=== PATIENT | female | born 1970 | race African-American/Black ===

== ENCOUNTER 2019-10-06 18:17 | Emergency (ER) | payer OTHER ==
[~2019-10-06] VITALS: Ht 165.1 cm; Wt 77.1 kg
[~2019-10-06 18:17] MED LIST: NORCO 5-325 TA1 EACH PO; TRINATE TABLET1 TAB PO; [UNRECOGNIZED DRUG - OTHER] PO
[2019-10-06 19:18] LABS: ABSOLUTE NEUTROPHILS 3.4 thou/uL (1.4-8.2); BASOPHILS 0.5 % (0.0-2.0); HEMATOCRIT 38.9 % (37.0-47.0); HEMOGLOBIN 12.9 gm/dL (12.0-15.0); MCH 27.1 pg (26.0-34.0); MCHC 33.3 g/dL (28.0-37.0); MCV 81.5 fL (80.0-100.0); PLATELET COUNT 238 thou/uL (150-400); POLYS 59.5 % (36.0-66.0); RBC 4.77 mil/uL (4.20-5.00); RDW 14.6 % (10.5-14.5); WBC 5.6 thou/uL (4.0-11.0)
[2019-10-06 19:21] LABS: CALCIUM 7.9 mg/dL (8.5-10.1); CREATININE 1.1 mg/dL (0.6-1.0); POTASSIUM 3.7 mmol/L (3.5-5.1)
[2019-10-06 19:27] LABS: ALBUMIN 2.9 g/dL (3.4-5.0); TOTAL BILIRUBIN 0.3 mg/dL (0.2-1.0); TOTAL PROTEIN 8.3 g/dL (6.4-8.2)
[2019-10-06] MEDS ORDERED: MEDROLDOSEPACK PO (19:59)
[2019-10-06] MEDS ORDERED: ZPAK PO (19:59)
[2019-10-06] MEDS ORDERED: ONDANSETRON HCL4 M2 PO (19:59)
[2019-10-06] MEDS ORDERED: PROMETH-CODEIN 65 ML PO (20:05)
[2019-10-06 20:11] VITALS: BP 118/63
== END 2019-10-06 20:12 | disposition home or self-care (01) ==
LOC: ER 18:17
PROVIDERS: Physician Assistant
DX: U07.1 COVID-19 (principal); R05 Cough; M79.18 Myalgia, other site; Z88.6 Allergy status to analgesic agent; Z88.5 Allergy status to narcotic agent; Z91.013 Allergy to seafood; Z79.899 Other long term (current) drug therapy

== ENCOUNTER 2019-10-13 11:36 | Inpatient (IN) | payer OTHER ==
[~2019-10-13] VITALS: Ht 162.6 cm; Wt 74.4 kg
[~2019-10-13 11:36] MED LIST changes: +MEDROLDOSEPACK PO; +ONDANSETRON HCL4 M2 PO; +PROMETH-CODEIN 65 ML PO; +ZPAK PO
[2019-10-13 11:45] VITALS: BP 122/70
[2019-10-13 12:57] LABS: ABSOLUTE NEUTROPHILS 7.9 thou/uL (1.4-8.2); BASOPHILS 0.1 % (0.0-2.0); EOSINOPHILS 0.6 % (0.0-3.0); HEMATOCRIT 36.1 % (37.0-47.0); MCH 27.2 pg (26.0-34.0); MCHC 33.2 g/dL (28.0-37.0); MCV 82.1 fL (80.0-100.0); MONOCYTES 5.4 % (1.0-8.0); PLATELET COUNT 338 thou/uL (150-400); POLYS 75.9 % (36.0-66.0); RDW 14.6 % (10.5-14.5); WBC 10.4 thou/uL (4.0-11.0)
[2019-10-13 13:03] LABS: ANION GAP 11 mmol/L (7-16); BUN 10 mg/dL (7-18); CALCIUM 8.7 mg/dL (8.5-10.1); CHLORIDE 99 mmol/L (98-107); CO2 30 mmol/L (21-32); GLUCOSE 122 mg/dL (74-106); POTASSIUM 3.4 mmol/L (3.5-5.1); SODIUM 140 mmol/L (136-145)
[2019-10-13 13:14] LABS: ALBUMIN 2.5 g/dL (3.4-5.0); MAGNESIUM 2.3 mg/dL (1.8-2.4); SGOT 62 U/L (15-37); SGPT 23 U/L (30-65); TOTAL BILIRUBIN 0.6 mg/dL (0.2-1.0); TOTAL PROTEIN 8.2 g/dL (6.4-8.2); TROPONIN-I <0.06 ng/mL (<0.06)
[2019-10-13 14:06] LABS: BE(vivo) 2.3 mmol/L (-2 to +3); HCO3 25.2 mmol/L (22.0-26.0); PCO2 33.3 mmHg (35.0-45.0); PO2 54.3 mmHg (80.0-100.0); pH 7.497 (7.360-7.450); sO2 91.1 % (92.0-98.0)
--- NOTE | 2019-10-13 16:24 | EKG ---
[facility] [place] [address] ELECTROCARDIOGRAM REPORT Name: SULY JULIEN Room #: [facility]..#: [id number] Admission: 10/13/19 Attend Phys: Discharge: Date of : 74 Report #: [id number] THIS REPORT FOR: cc: Justus Francisco MD, Michael J. 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
[2019-10-13 17:13] VITALS: BP 113/65
[2019-10-13 17:38] VITALS: BP 115/64
[2019-10-13 18:04] LABS: URINE BILIRUBIN NEGATIVE (Negative); URINE BLOOD NEGATIVE (Negative); URINE CLARITY CLEAR; URINE COLOR YELLOW; URINE GLUCOSE-RANDOM* NEGATIVE (Negative); URINE KETONES NEGATIVE (Negative); URINE LEUKOCYTES-REFLEX NEGATIVE (Negative); URINE NITRITE-REFLEX NEGATIVE (Negative); URINE PROTEIN (DIPSTICK) 1+ (Negative)
[2019-10-13 18:18] VITALS: BP 131/68
[2019-10-13 18:27] LABS: SQUAMOUS >10 Many /LPF (0-3)
[2019-10-13 18:39] LABS: CRYSTALS None Seen /LPF (None Seen); URINE RBC 0-2 Rare /HPF (0-2)
[2019-10-13 18:40] LABS: BACTERIA-REFLEX None Seen /HPF (None Seen)
[2019-10-13 18:41] LABS: COARSE GRANULAR CASTS 0-3 Few /LPF (None Seen); HYALINE CASTS 0-3 Few /LPF (None Seen); URINE WBC-REFLEX 0-5 Rare /HPF (0-5)
--- NOTE | 2019-10-13 19:33 | NUR ---
PATIENT ADMIT TO UNIT AT 1800. A/O X4. ON 3L/NC. DENIES PAIN. UP AD PATRICIO. WILL KEEP MONITOR.
[2019-10-13 21:00] VITALS: BP 116/78
[2019-10-14 04:05] VITALS: BP 111/68
--- NOTE | 2019-10-14 04:28 | NUR ---
Patient making slow progress towards outcome goals. Oxygenation optimal with 3L/NC sats 93-95%. Coughing fits, causing stress incontinence. pads provided. IVFluids infusing. Up adlib, gait steady. Good oral intake. Temp max 99 orall. Patient states she feels improved overall.
[2019-10-14 06:50] LABS: HEMOGLOBIN 10.9 gm/dL (12.0-15.0); MCH 26.9 pg (26.0-34.0); MCHC 32.4 g/dL (28.0-37.0)
[2019-10-14 06:52] LABS: ABSOLUTE NEUTROPHILS 7.3 thou/uL (1.4-8.2); BASOPHILS 0.3 % (0.0-2.0); HEMATOCRIT 33.5 % (37.0-47.0); LYMPHOCYTES 5.8 % (24.0-44.0); MCV 82.8 fL (80.0-100.0); MONOCYTES 8.5 % (1.0-8.0); POLYS 85.4 % (36.0-66.0); RBC 4.05 mil/uL (4.20-5.00); RDW 14.9 % (10.5-14.5); WBC 8.6 thou/uL (4.0-11.0)
[2019-10-14 07:29] LABS: ALBUMIN 2.1 g/dL (3.4-5.0); CALCIUM 8.3 mg/dL (8.5-10.1); CREATININE 0.9 mg/dL (0.6-1.0); INR 1.1; PROTIME 11.1 Seconds (9.3-11.4); TOTAL BILIRUBIN 0.4 mg/dL (0.2-1.0); TOTAL PROTEIN 7.4 g/dL (6.4-8.2)
[2019-10-14 08:24] VITALS: BP 107/69
[2019-10-14 11:32] VITALS: BP 116/71
[2019-10-14 11:50] LABS: PLATELET COUNT 289 thou/uL (150-400)
[2019-10-14 16:28] VITALS: BP 127/79
--- NOTE | 2019-10-14 17:14 | NUR ---
ASSUMED PATIENT CARE AT 0700. A/O X4. ON 3L/NS. SOB WITH EXERTION. C/O ABD PAIN. NO N/V. SLOWLY TOWARDS POC GOALS.
[2019-10-14 19:39] LABS: BE(vivo) 3.4 mmol/L (-2 to +3); HCO3 27.1 mmol/L (22.0-26.0); PCO2 37.9 mmHg (35.0-45.0); PO2 55.9 mmHg (80.0-100.0); pH 7.472 (7.360-7.450)
[2019-10-14 19:40] VITALS: BP 115/74
--- NOTE | 2019-10-14 22:11 | NUR ---
PT IS ALERT AND ORIENTED X4. RR 28 AT START OF SHIFT. O2 SAT 44% FOUND PER RT ALIA WHILE WE WERE IN REPORT. PLACED ON 100% NRB . SAT INCREASED TO 92-93%. ABGS DONE.CRITICAL RESULTS CALLED TO ELAINA RAJAN AND DR THOMSON. RESP TX PER RT. METHYLPREDISONE GIVEN SCHEDULED. WAITING FOR ICU BED FOR POSSIBLE BIPAP AND NEBULIZERS PER DR FUCHS REQUEST. MONITORING O2 SAT FREQUENTLY. LUNGS SOUND CLEAR UPPERSWITH DIMINISHED BASES, STAT PCXRAY DONE. WAITING FOR RESULTS.
[2019-10-14 23:25] VITALS: BP 119/70
[2019-10-15] VITALS (18 sets, daily range): BP systolic 112–148; BP diastolic 61–82
--- NOTE | 2019-10-15 07:23 | NUR ---
PT TRANSFERRED FROM [facility], AROUND 0130 DUE TO HYPOXIA, UNABLE TO KEEP O2 SATS > 90 ON A NONEREBREATHER. ALERT AND ORIENTED. SR ON THE MONITOR. PT CURRENTLY ON BIPAP FIO2 80% , O2 SATS > 90. DENIES ANY CONCERNS, DENIES PAIN, NAUSEA OR VOMITING. CONVALESCENT PLASMA ORDERED BY DR THOMSON, UNABLE TO TRANSFUSE LAST NIGHT. DR. THOMSON OK TO WAIT FOR DR. MAGAÑA TO SEE THE PATIENT HE WILL BE THE ONE TO PROVIDE EIND NUMBER. PT CURRENTLY RESTING , NO OTHER CONCERNS. WILL CONTINUE TO MONITOR AND FOLLOW POC.
--- NOTE | 2019-10-15 14:42 | NUR ---
1100 Per pt request, RN added Linh Madden- cousena as an additional authorized contact. RN called Linh to update on pt's pulmonary status and gave her the Privacy Code. 1300 pt had chicken noodle soup, banana, peaches for lunch. Sao2 intermittently down to 83%, then slowly resolves into 90's. 1430 with one assist, pt into prone position. st-119, sa02 down to 83%, then returned to sr-80's, [id number]%. resting quietly at this time.
--- NOTE | 2019-10-15 15:32 | NUR ---
CALL PLACED TO INFECTIOUS DISEASE TO OBTAIN AN "eIND" number for convalescent plasma administration.
[2019-10-16] VITALS (24 sets, daily range): BP systolic 112–151; BP diastolic 56–80
[2019-10-16 05:31] LABS: HEMATOCRIT 33.4 % (37.0-47.0); HEMOGLOBIN 10.7 gm/dL (12.0-15.0); MCH 26.5 pg (26.0-34.0); MCHC 31.9 g/dL (28.0-37.0); MCV 83.1 fL (80.0-100.0); RBC 4.02 mil/uL (4.20-5.00); RDW 15.1 % (10.5-14.5); WBC 15.8 thou/uL (4.0-11.0)
[2019-10-16 05:39] LABS: PLATELET COUNT 191 thou/uL (150-400)
[2019-10-16 05:45] LABS: ALBUMIN 2.4 g/dL (3.4-5.0); CALCIUM 8.5 mg/dL (8.5-10.1); POTASSIUM 3.8 mmol/L (3.5-5.1); TOTAL BILIRUBIN 0.9 mg/dL (0.2-1.0); TOTAL PROTEIN 6.9 g/dL (6.4-8.2)
[2019-10-16 06:50] LABS: BE(vivo) 3.7 mmol/L (-2 to +3); HCO3 28.3 mmol/L (22.0-26.0); PCO2 42.8 mmHg (35.0-45.0); PO2 68.5 mmHg (80.0-100.0); pH 7.438 (7.360-7.450); sO2 94.2 % (92.0-98.0)
[2019-10-16 06:54] LABS: ABSOLUTE NEUTROPHILS 14.1 thou/uL (1.4-8.2); MYELOCYTES 2 %
--- NOTE | 2019-10-16 09:21 | NUR ---
on optiflow, consumed small amount breakfast. lights dimmed, she prefers to rest.
--- NOTE | 2019-10-16 11:42 | NUR ---
chart review. cm unable to visit with valarie rt resting and soa. noted from chart pt mom was covid + and she helps her mom out. then she came in was tested and sent home from ed, cont to become more soa and not feeling well and then she came back to ed and was admitted. cm tried calling spouse hari via phone call and got a busy signal, needing to verify if she indeed works with [employer] and if she carries any health insurance. will cont following as needed for dc needs.
--- NOTE | 2019-10-16 12:54 | NUR ---
SAO2 DOWN TO 63% AFTER COUGHING. PLACED ON BIPAP- CPAP MODE-8, FI02 80% WITH RESP RATE DOWN TO 28. UP TO BEDSIDE COMMODE SINCE HAVING LOOSE STOOL. COUSIN CALLED, UPDATED ON STATUS.
--- NOTE | 2019-10-16 18:00 | NUR ---
REPLACED ON OPTIFLOW WHEN UP IN CHAIR. TOLERATING SITTING IN CHAIR AND HER "LUNG" DISCOMFORT IS RESOLVED WHILE IN CHAIR. TO BS WITHOUT RESULTS. BACK TO CHAIR TO CONSUME PM MEAL.
--- NOTE | 2019-10-16 21:51 | NUR ---
PT UP IN CHAIR WATCHING TV AND ON PHONE. PT SMILING AND TALKING WITH STAFF, SOME SOA WITH TALKING. OPTIFLOW INTACT. SIMS TO DD. SLIDING SCALE GIVEN AND PT PROIVDED HS SNACK. . LUNGS DIMINISHED ON RUL RLL. PT STATED HER GOAL IS TO BE OUT OF ICU BY WED. NURSE DISCUSSED WITH PT WHEN SHE GOES TO BED TO BE IN PRONE POSITION AND BIPAP. PT STATED SHE WAS PRONE YESTERDAY AND NOTICED THE DIFFERENCE. PT STATED SHE WANTS TO STAY IN THE CHAIR TONIGHT. WILL ASK RESPIRATORY THERAPIST TO REAPPROACH PT REGARDING THIS TOPIC. LOVENOX GIVEN, SCDS ON.
[2019-10-17] VITALS (8 sets, daily range): BP systolic 116–132; BP diastolic 61–86
--- NOTE | 2019-10-17 01:32 | NUR ---
PT CALLED OUT TO GET INTO BED IN PRONE POSITION. PT WAS ABLE TO INDEP GET INTO BED AND CONTINUED TO EXPRESS HER INSTRUCTIONS, NO EXERTION NOTED IN VERBALIZATIONS.
[2019-10-17 04:51] LABS: ABSOLUTE NEUTROPHILS 10.9 thou/uL (1.4-8.2); BASOPHILS 0.4 % (0.0-2.0); HEMATOCRIT 34.9 % (37.0-47.0); HEMOGLOBIN 11.2 gm/dL (12.0-15.0); LYMPHOCYTES 16.3 % (24.0-44.0); MCH 26.3 pg (26.0-34.0); MCHC 31.9 g/dL (28.0-37.0); MCV 82.3 fL (80.0-100.0); MONOCYTES 4.7 % (1.0-8.0); PLATELET COUNT 183 thou/uL (150-400); POLYS 78.6 % (36.0-66.0); RBC 4.25 mil/uL (4.20-5.00); RDW 14.5 % (10.5-14.5); WBC 13.8 thou/uL (4.0-11.0)
--- NOTE | 2019-10-17 04:54 | NUR ---
PT VERBALIZED UNDERSTANDING OF TRANSFER TO 364. REPORT TO BE PROVIDED TO DI ON 3W. PT TRANSFERED IN BED ON NON REBREATHER, PT WILL RETURN TO BIPAP ON 3W.
[2019-10-17 05:12] LABS: ALBUMIN 2.4 g/dL (3.4-5.0); CALCIUM 8.5 mg/dL (8.5-10.1); MAGNESIUM 2.5 mg/dL (1.8-2.4); POTASSIUM 3.3 mmol/L (3.5-5.1); TOTAL BILIRUBIN 0.6 mg/dL (0.2-1.0); TOTAL PROTEIN 6.8 g/dL (6.4-8.2)
--- NOTE | 2019-10-17 08:09 | NUR ---
RECEIVED PT FROM ICU AROUND 0600 AM. VSS. AFEBRILE. SATS 91-96% ON CPAP WITH 80% FIO2. PT SITTING UP ON BSC HAVING LOOSE STOOLS. DISCONTINUED SIMS PER PT REQUEST AFTER ELAINA NOTIFIED. ST ON MONITOR.ORIENTED PT TO ROOM. CALL LIGHTIN REACH. INSTRUCTED PT ON FALL PRECAUTIONS.
--- NOTE | 2019-10-17 08:21 | NUR ---
SCDS OFF FOR NOW DUE TO NO MACHINE AVAILABLE. SLEEVES IN ROOM. NOTFIED DAY SHIFT NS TO F/U.
--- NOTE | 2019-10-17 08:37 | NUR ---
SCDS APPLIED FOUND MACHINE.
--- NOTE | 2019-10-17 15:12 | NUR ---
CHAY reviewed chart and spoke with nursing and attending physician. Pt in Enhanced Isolation due to COVID-19. Pt is afebrile. On IV abx and requring bipap support. SW left voice message for pt on her cell phone to discuss her prior level of functioning before coming to the hospital. Per chart, she lives at home with her son. Therapy will need to be ordered when pt is able to participate. CHAY is following to assist as needed with discharge planning.
--- NOTE | 2019-10-17 18:46 | NUR ---
ASSUMED PATIENT CARE AT 0700. A/O X4.SOB AND INCREASED HR WITH ACTIVTY. PATIENT TOLERATED ON OPTIFLOW 55L/ 80% FIO2. VSS, AFEBRILE. SLOWLY TOWARDS POC GOLAS.
--- NOTE | 2019-10-18 00:50 | NUR ---
PT RESTING UP IN CHAIR LISTENING TO MUSIC. OPTI FLOW INTACT. PT TRANSFERRING SELF FROM CHAIR TO BSC, STEADY GAIT. HR DOES INCREASE WHEN PT TRANSFERS. PT HAS FREQUENT COUGHING. PT HAS FAN ON IN ROOM, EDUCATED ON HOW FAN SPREADS HER PARTICLES FROM COUGHING AROUND ROOM, AGREED TO TURN OFF WHILE STAFF PRESENT. LUNGS DIMINISHED RUL AND RLL. PT DECLINED HS INSULIN REPORTED NOT EATING DINNER. PT REPORTING THROAT DISCOMFORT FROM OXYGEN, PROVIDED PRN IBUPROFEN AND DIVEHI ICE.
[2019-10-18 04:30] VITALS: BP 130/79
--- NOTE | 2019-10-18 08:00 | NUR ---
PT WITH PROD COUGH NOTED...ON OPTIFLOW ...SATS 94%...WILL MONITOR
[2019-10-18 08:41] VITALS: BP 137/76
[2019-10-18 11:28] VITALS: BP 122/69
--- NOTE | 2019-10-18 16:00 | NUR ---
CHAY reviewed chart and spoke with nursing and attending physician. Pt is in Enhanced Isolation due to COVID-19. Pt is afebrile and requiring opti-flow O2 support. Pt is on IV abx. Pt has finished course of Remdesivir. CHAY placed call to pt's room several times today. No answer. Therapy to be ordered to work with pt when she is able to participate. CHAY is following to assist as needed with discharge planning.
[2019-10-18 19:52] VITALS: BP 130/74
--- NOTE | 2019-10-19 03:26 | NUR ---
Patient making slow progress towards outcome goals. Afebrile. Oxygenation optimal on optiflo 55/70%. Desats with any activity. Tachycardic up to 140's with actvitity and coughing spells. Enhanced precautions, COVID positive.
[2019-10-19 05:54] VITALS: BP 116/79
[2019-10-19 07:41] VITALS: BP 122/69
[2019-10-19 11:40] VITALS: BP 105/50
--- NOTE | 2019-10-19 12:30 | NUR ---
Nutrition: Assessed for early day 6 LOS. Pt is COVID+, in enhanced isolation. On Optiflow per notes. Attempted to phone pt x2, pt did not answer. Reviewed EMR and nursing notes for nutrition updates. Pt reported throat discomfort from O2 yesterday. Was given pain meds and [place] ice. Pt on a regular diet, able to continue ordering as needed if needing softer foods. Would suggest yogurt, eggs, sherbet, ice cream, cottage cheese, chicken/tuna salad, or other simliar consistencies. Meal intakes earlier in stay slightly lower at 20-50% but yesterday appetite/intake showed tremendous gains as pt completed 75% of 1 meal and 100% of other 2 meals. Provider notes indicate pt is able to eat and having no N/V/D. Recent BM this a.m., 10/18. Given very positive meal intake trends, anticipate pt to remain low nutrition risk.
--- NOTE | 2019-10-19 13:21 | NUR ---
CHAY reviewed chart and spoke with nursing and attending physician. Pt is in Enhanced Isolation due to COVID-19. Pt is afebrile and on OptiFlow O2. Pt is on IV abx and IV steroids. Pt will need therapy evals when able to participate. CHAY placed call to pt's room. No answer. CHAY notified that pt [place]. CHAY spoke with pt via her cell phone. Introduced role of SW. Pt states she lives at home with family. Prior to admission, pt was independent with ADLs. No use of DME. Pt with hx of asthma, and states she stopped using her rescue inhalers a while back. Pt has a 13 yr old son, who is staying with her 29 yr old dtr. Pt reports she has 13 siblings, who are able to assist with taking care of pt's son while she is hospitalized. SW informed pt that her Medicaid is active. CHAY discussed potential discharge needs: post-acute placement (LTAC v. Inpt Acute Rehab). Pt is agreeable with post-acute placement if needed. CHAY requested [employer] in store representative to follow up with pt regarding possible disability application. CHAY is following to assist as needed with discharge planning.
[2019-10-19 16:08] VITALS: BP 115/52
--- NOTE | 2019-10-19 18:28 | NUR ---
PATIENT STILL ON OPTFLOW WITH 55L. COUGH WITH DESATTING. AMBULATED A FEW STEP IN ROOM. SLOWLY TOWARDS POC GOALS.
[2019-10-19 21:15] VITALS: BP 127/71
--- NOTE | 2019-10-20 03:34 | NUR ---
Patient progressing slowly towards outcome goals. States she is feeling a lot betterbut still requires optiflo at 70% oxygen. sats 100% at rest. Destaurates with any activity and tachycardic up to 140's when out of bed. Refused solumedrol, inhaler, and lovenox. Patient vebalized understanding of refusing medications. Vital signs and rhythm stable. Appetite fair. Good intake and output.
[2019-10-20 05:30] VITALS: BP 122/7
[2019-10-20 08:52] VITALS: BP 118/70
--- NOTE | 2019-10-20 10:58 | NUR ---
SW reviewed chart and spoke with nursing and attending physician. Pt in Enhanced Isolation due to COVID-19. Pt is afebrile. On IV abx/IV steroids and requiring Optiflow O2. No weekend discharge planned. Therapy evals to be ordered when pt is able to participate. SW is following to assist as needed with discharge planning.
[2019-10-20 11:45] VITALS: BP 126/79
[2019-10-20 15:59] VITALS: BP 114/75
[2019-10-20 19:41] VITALS: BP 123/71
--- NOTE | 2019-10-21 04:40 | NUR ---
ASSUMED PT CARE AROUND 1930. AXOX4. CALLS APPROPRIATELY FOR ASSISTANNCE. VSS. PERSISTENT COUGHING TX PER MD ORDER. NO S/S ACUTE DISTRESS NOTED OR REPORTED AT THIS TIME. WILL CONT TO MONITOR FOR ANY CHANGES IN CONDITION.
[2019-10-21 05:43] VITALS: BP 134/83
[2019-10-21 08:07] VITALS: BP 137/77
[2019-10-21 12:20] VITALS: BP 126/72
--- NOTE | 2019-10-21 16:12 | NUR ---
ASSUMED CARE OF PT AT 0700. PT AOX4 IN NO ACUTE DISTRESS. REPORTS FEELING BETTER. REMAINS ON OPTIFLOW. CALLS OUT FOR ANALGESICS PRN. OTHERWISE VOICING NO CONCERNS. GOOD PROGRESS TOWARD POC GOALS.
[2019-10-21 16:14] VITALS: BP 119/74
[2019-10-21 19:55] VITALS: BP 118/78
[2019-10-22 05:50] VITALS: BP 127/80
--- NOTE | 2019-10-22 07:22 | NUR ---
Pt. requested ibuprofen for pain from coughing with good relief. Maintaining O2 sat in the mid to upper 90's . She does get short of breath with exertion though she noticed some improvement. Cont. on isolation for COVID , afebrile. She states she slept some. Making some progress towards care plan goals.
[2019-10-22 08:25] VITALS: BP 122/71
[2019-10-22 11:59] VITALS: BP 123/71
[2019-10-22 16:46] VITALS: BP 120/80
--- NOTE | 2019-10-22 19:50 | NUR ---
ASSUMED PATIENT CARE AT 0700. A/O X4. ON OPTFLOW 02. WITH ACTIVITY. SLOWLY TOWARDS POC GOALS.
[2019-10-22 20:12] VITALS: BP 117/65
[2019-10-23 04:00] VITALS: BP 133/77
--- NOTE | 2019-10-23 06:34 | NUR ---
PT MAKING PROGRESS TOWARDS GOALS. PT REQUESTED OXYGEN BE DECREASED FROM 50L TO 40L WHICH WAS DONE BY RT. PT HAS BEEN MOVING FROM CHAIR TO BED AND BACK WITHOUT ASSISTANCE. LUNGS VERY DIMISHED.
[2019-10-23 07:25] VITALS: BP 131/82
[2019-10-23 11:20] VITALS: BP 119/70
--- NOTE | 2019-10-23 13:33 | NUR ---
CHAY reviewed chart and spoke with nursing and attending physician. Pt is in Enhanced Isolation due to COVID-19. Pt is afebrile and on Opti Flow O2. Pt is on IV steroids. Discussed possible therapy evals with attending physician. Per nursing, pt is able to get up in her room. Will need rest/exercise oximetry to test pt's O2 needs at time of discharge. Discussed current O2 requirements with RT. SW spoke with pt via phone. Discussed current plan of care and discharge plans. Pt is agreeable with considering post-acute placement for continued rehab services and medical mgmt if needed. SW discussed both LTAC and Inpt Acute Rehab, as [place]. Pt asked about outpatient services. SW explained that her O2 needs will need to be determined prior to discharge to ensure that her O2 needs can be safely managed at home. SW requested a repeat COVID test to be ordered. Pt's test was completed on 10/13. Results of COVID test will assist with determining pt's level of care at time of discharge. CHAY is following to assist as needed with discharge planning.
[2019-10-23 15:21] VITALS: BP 127/73
--- NOTE | 2019-10-23 17:04 | NUR ---
ASSUMED PATIENT CARE AT 0700. FIO2 TITRATED TO 40L. 50% PROGRESSING TOWARDS POC GOALS.
[2019-10-23 19:44] VITALS: BP 119/71
[2019-10-24 03:00] VITALS: BP 123/72
--- NOTE | 2019-10-24 06:15 | NUR ---
PT MAKING PROGRESS TOWARDS GOALS. PT UP TO CHAIR/BED FREQUENTLY. REPORTS SHE HAS WALKED TO THE TOILET AND BACK ON A FEW OCCASIONS (WHILE ON ROOM AIR). CAUTION ENCOURAGED. ON 35L PER OPTIFLO OXYGEN DEVICE OVERNIGHT. PT REPORTS SHE IS LOOKING FORWARD TO BEING ON A STANDARD O2 CANNULA THIS MORNING AND IS HOPEFUL FOR DISCHARGE ON WEDNESDAY.
[2019-10-24 07:55] VITALS: BP 113/84
--- NOTE | 2019-10-24 14:30 | NUR ---
SW reviewed chart and spoke with nursing and attending physician. Pt is in Enhanced Isolation due to COVID-19. Repeat test ordered and is pending. SW requested therapy evals to assist with recommendations for discharge. Pt is afebrile and on Opti Flow. Pt is on IV steroids. Discharge home is anticipated later in the week pending therapy evals and O2 requirements. SW is following to assist as needed with discharge planning.
[2019-10-24 16:36] VITALS: BP 107/72
[2019-10-24 21:11] VITALS: BP 125/84
[2019-10-25 04:16] VITALS: BP 127/84
--- NOTE | 2019-10-25 05:55 | NUR ---
PT MAKING PROGRESS TOWARDS GOALS. ON O2 AT 4L PER NC. O2 SATS MID 90'2 AT REST BUT DROP TO MID 80'S WITH ACTIVITY.
[2019-10-25 08:05] VITALS: BP 110/68
--- NOTE | 2019-10-25 11:23 | NUR ---
ORDERS RECEIVED FOR EVAL AND TREAT. UPON ENTERING ROOM Pt ABLE TO STAND AND AMBULATE OVER TO THERAPIST WITHOUT DIFFICULTY. Pt STATES SHE IS HAVING ABSOLUTLEY NO DIFFICULTY WITH STRENGTH, BALANCE OR MOBILITY AND IS ANXIOUS TO BE DISCHARGED TO HOME. DECLINING FORMAL P.T. EVAL BUT Pt APPEARS SAFE FOR HOME WHEN MEDICALLY CLEAR
--- NOTE | 2019-10-25 14:26 | NUR ---
ENTERED ROOM, INTRODUCED ROLE OF OT TO PT. PT. REPORTS SHE DECLINES OT, STATES SHE KNOWS TO TAKE BREAKS OR SIT DOWN WHEN NEEDED TO SAVE ENERGY. STATES SHE HAS NO CONCERNS FOR SELF-CARE AND HAS BEEN UP ON HER OWN IN THE ROOM. PT. SUPINE>SIT EOB INDEP, SIT<>STAND INDEP. PT. IS DECLINING FORMAL OT EVALUATION AT THIS TIME. ACUTE OT SIGNING OFF.
--- NOTE | 2019-10-25 14:50 | NUR ---
CHAY reviewed chart and spoke with nursing and attending physician. Pt remains in Enhanced Isolation due to COVID-19. Pt's repeat test on 10/22 was positive. Pt is afebrile and on 2-4L of O@ via NC. PT deferred eval as pt was ambulating in her room. Pt will need a rest/exercise oximetry prior to discharge to determine pt's home O2 needs. CHAY spoke with pt via phone to discuss discharge needs: home O2 and possible HH. Pt verbalized understanding for need of home O2. Pt to think about HH, but feels that her sisters will be able to help her. SW explained process for getting in-home services through her Medicaid in place. Pt will need an evaluation to determine her eligibility of services. Options discussed for DME providers. No preference voiced. CHAY faxed face sheet and clinical info to [facility] for review to see if they accept pt's insurance. Notified [facility] liaison of referral. Discussed case with UR RN regarding pt's insurance. Plan is for pt to discharge home when medically stable. Pt interested in establishing care at [facility] after discharge. Pt to be provided with [facility] PCP providers and Health Resource Guide. CHAY is following to assist as needed with discharge planning.
[2019-10-25] MEDS ORDERED: GUAIFENESIN DM S5 ML PO (15:07)
[2019-10-25] MEDS ORDERED: ACETAMINOPHEN325 M1 PO (15:07)
[2019-10-25] MEDS ORDERED: TRAMADOL 50 MG50 MG PO (15:07)
[2019-10-25] MEDS ORDERED: VENTOLIN HFA INH8 GM INH (15:07)
[2019-10-25] MEDS ORDERED: PREDNISONE 5 MG5 MG PO (15:07)
--- NOTE | 2019-10-25 16:18 | NUR ---
ASSUMED PATIENT CARE AT 0700. A/O X4. UP AD PATRICIO. TITRATED 02 TO 2L. DESATTING WITH ACTIVITY. GOT DC ORDER ON PATIENT. PATIENT 85% ON RA. ORDERED EXERCISE.
[2019-10-25 16:52] VITALS: BP 110/68
== END 2019-10-25 17:55 | disposition home or self-care (01) | DRG 177 ==
LOC: ER 11:36 → 3W 18:02 → ICU 10-15 02:44 → 3W 10-17 05:49
PROVIDERS: Emergency Medicine; Pediatrics; Specialist; ADMIT Internal Medicine; ATTEND Internal Medicine
DX: U07.1 COVID-19 (principal); J12.89 Other viral pneumonia; J96.01 Acute respiratory failure with hypoxia; J45.909 Unspecified asthma, uncomplicated; D72.829 Elevated white blood cell count, unspecified; R73.9 Hyperglycemia, unspecified; T38.0X5A Adverse effect of glucocorticoids and synthetic analogues, initial encounter; Z88.8 Allergy status to other drugs, medicaments and biological substances; Z91.013 Allergy to seafood; Z88.6 Allergy status to analgesic agent; Y92.89 Other specified places as the place of occurrence of the external cause; Z79.899 Other long term (current) drug therapy
CPT/HCPCS: 10078; 10080; 10879

== ENCOUNTER → 2019-11-16 | Outpatient (CLI) | payer OTHER ==
[~2019-11-16] MED LIST changes: +ACETAMINOPHEN325 M1 PO; +GUAIFENESIN DM S5 ML PO; +PREDNISONE 5 MG5 MG PO; +TRAMADOL 50 MG50 MG PO; +VENTOLIN HFA INH8 GM INH
== END ==
LOC: LAB
PROVIDERS: ATTEND Pediatrics
DX: Z20.828 Contact with and (suspected) exposure to other viral communicable diseases (principal)

== ENCOUNTER → 2019-11-21 | Outpatient (CLI) | payer OTHER | LOC: RAD 10:18 | PROVIDERS: ATTEND Pediatrics | DX: R91.8 Other nonspecific abnormal finding of lung field (principal); U07.1 COVID-19; J96.00 Acute respiratory failure, unspecified whether with hypoxia or hypercapnia; J69.0 Pneumonitis due to inhalation of food and vomit ==

== ENCOUNTER → 2020-06-10 | Outpatient (CLI) | payer OTHER | LOC: RAD 08:58 | PROVIDERS: ATTEND Pediatrics | DX: R91.8 Other nonspecific abnormal finding of lung field (principal) ==

== ENCOUNTER → 2020-08-08 | Outpatient (CLI) | payer OTHER | LOC: RAD 12:12 | PROVIDERS: ATTEND Pediatrics | DX: J98.4 Other disorders of lung (principal); J96.00 Acute respiratory failure, unspecified whether with hypoxia or hypercapnia; J69.0 Pneumonitis due to inhalation of food and vomit; U07.1 COVID-19 ==

== ENCOUNTER 2020-11-03 12:46 | Emergency (ER) | payer OTHER ==
[~2020-11-03] VITALS: Ht 165.1 cm; Wt 77.1 kg
[2020-11-03] MEDS ORDERED: SYMBICORT160 MCG/4. INH (14:00)
[2020-11-03] MEDS ORDERED: METHOCARBAMOL500 M2 PO (15:04)
[2020-11-03] MEDS ORDERED: NAPROSYN500 MG PO (15:04)
[2020-11-03 15:54] VITALS: BP 130/81
== END 2020-11-03 15:54 | disposition home or self-care (01) ==
LOC: ER 12:46
DX: M62.830 Muscle spasm of back (principal); Z98.890 Other specified postprocedural states; Z86.16 Personal history of COVID-19; Z79.51 Long term (current) use of inhaled steroids; Z79.899 Other long term (current) drug therapy; Z88.6 Allergy status to analgesic agent; Z88.5 Allergy status to narcotic agent; Z91.013 Allergy to seafood

== ENCOUNTER → 2021-01-23 | Outpatient (CLI) | payer OTHER ==
[~2021-01-23] MED LIST changes: +METHOCARBAMOL500 M2 PO; +NAPROSYN500 MG PO; +SYMBICORT160 MCG/4. INH
== END ==
LOC: RAD 10:00
PROVIDERS: ATTEND Pediatrics
DX: R06.02 Shortness of breath (principal); J98.4 Other disorders of lung